=== PATIENT | male | born 1955 | race Caucasian/White ===

== ENCOUNTER → 2016-07-04 | Outpatient (CLI) | payer MEDICAID ==
[~2016-07-04] MED LIST: AUGMENTIN875 MG PO; ELIQUIS5 MG PO; LORTAB 5-325 M1 EACH PO; NO MEDICATIONS; PREDNISONE PO; TYL325 PO
--- NOTE | ~2016-07-04 | MR17 ---
[facility] A Service of [facility] & [facility] RADIOLOGY TEXT RESULTS PATIENT: DARNELL RUVALCABA LOCATION: [facility] : 55 UNIT #: [id number] AGE: [address]: Mindy Craig MD SEX: M ORDER DR: [id number] [facility] [address] [place], [place] [address] [id number] O MR#: [id number] Acc #: [id number] NAME: DARNELL RUVALACBA : 1955 SEX: M STUDY DATE/TIME: 07/04/2016 12:45 UNIT: [facility] ROOM: STUDY DESCRIPTION: MR Brain WWo Contrast Attending Physician: Mindy Craig M.D., Ph.D. Referring Physician: Mindy Craig M.D., Ph.D. Ordering Physician: Mindy Craig M.D., Ph.D. Primary Care Physician: Primary Care Physician No MRI CENTER REPORT This report is preliminary unless electronic signature is present. EXAM MRI of the brain with and without HISTORY Secondary malignant neoplasm of the brain. Lung cancer primary diagnosed 2-1/2 years ago. Known brain tumor for follow-up, treated with radiation February 2016 and June 2016. FINDINGS MRI of the brain was performed prior to and following intravenous administration of 15 mL of MultiHance. Comparison is made to the study from 03/22/2016. Redemonstrated is rim-like enhancing mass lesion centered in the left frontal lobe deeply and extending to the ependymal surface of the left lateral ventricle. On comparison to the prior study, the rim-like enhancing mass lesion itself is probably slightly smaller measuring about 1.7 x 1.7 x 1.6 cm in diameter as compared to 1.8 x 1.9 x 1.7 cm in dimension. There is more nodularity to the enhancing rind which is thicker than it was previously and there is probably subtle increased extension to the ependymal surface of the left lateral ventricle. Additionally, there is increased associated mass effect. This includes increase in the size of surrounding vasogenic edema in the left frontal lobe. Prior measurement axial plane about 3.6 x 3.5 cm with current measurement axial plane same level about 4.8 x 4.7 cm dimension. There is also some increased mass effect on the left lateral ventricle and development of about 3.0 mm of right to left shift of the midline at the level of the septum pellucidum. There are again likely blood products and/or mineral deposition at the margins of the cavity similar to previous. No new enhancing lesions are seen. No downward herniation. No change in the mild prominence of the extraaxial fluid overlying the anterior aspect of the brain. The major intracranial flow voids are STS. [facility] A Service of [facility] RADIOLOGY TEXT RESULTS PATIENT: DARNELL RUVALCABA LOCATION: [facility] : 55 UNIT #: [id number] AGE: [address]: Mindy Craig MD SEX: M ORDER DR: maintained. The mastoid air cells and paranasal sinuses are clear. IMPRESSION There are mixed changes with respect to the treated left frontal mass lesion. The rim enhancing component measures slightly smaller but the enhancement itself is thicker and more nodular and the surrounding vasogenic edema is worsening. There is also increasing mass effect and the development of about 3.0 mm of left to right shift of the midline at the level of the septum pellucidum. Findings could be due to interval growth of tumor or could be a manifestation of radiation necrosis. Clinical correlation and short term follow-up imaging suggested. No new intracranial masses appreciated. STAT * RESULT Dictated by... Amina Pedro M.D. THIS IS AN ELECTRONICALLY VERIFIED REPORT Amina Pedro M.D. at 07/05/2016 5:39 PM MARIA C/kathi TD: 07/05/2016 13:04 JOB #: [id number] MRI CENTER REPORT Page 1 of 1 COPY
[2016-07-04 15:51] LABS: POC - GFR >60.0 mL/min (>60)
== END | disposition home or self-care (01) ==
LOC: CMRI 11:54
PROVIDERS: Internal Medicine Hematology & Oncology
DX: C79.31 Secondary malignant neoplasm of brain (principal); C34.90 Malignant neoplasm of unspecified part of unspecified bronchus or lung; I26.09 Other pulmonary embolism with acute cor pulmonale; G93.89 Other specified disorders of brain
CPT/HCPCS: 70553; 82565; A9577

== ENCOUNTER → 2016-08-30 | Outpatient (CLI) | payer MEDICAID ==
--- NOTE | ~2016-08-30 | MR17 ---
[facility] A Service of [facility] & [facility] RADIOLOGY TEXT RESULTS PATIENT: DARNELL RUVALCABA LOCATION: [facility] : 55 UNIT #: [id number] AGE: [address]: Mindy Craig MD SEX: M ORDER DR: [id number] [facility] [address] [place], [place] [address] [id number] O MR#: [id number] Acc #: [id number] NAME: DARNELL RUVALCABA : 1955 SEX: M STUDY DATE/TIME: 08/30/2016 19:46 UNIT: [facility] ROOM: STUDY DESCRIPTION: MR Brain WWo Contrast Attending Physician: Mindy Craig M.D., Ph.D. Referring Physician: Luis Goncalves M.D. Ordering Physician: Mindy Craig M.D., Ph.D. Primary Care Physician: Primary Care Physician No MRI CENTER REPORT This report is preliminary unless electronic signature is present. 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 Patient had radiation therapy to the brain. Finding not indicated. Patient had brain surgery approximately February 2015 per his recollection. Apparently the patient has had headaches for a month. Followup intracranial tumor. FINDINGS MRI of the brain was performed prior to and following intravenous administration of 15 mL of MultiHance. There is a prior study from 07/04/2016. Redemonstrated is a mass lesion in the left frontal lobe centered in the deep to periventricular white matter and extending ependyma of left lateral ventricle. This mass has some blood products or mineral deposition associated with it. It has irregular somewhat nodular rim like enhancement with an area of central nonenhancement/necrosis. Current measurements are about 2.2 x 1.4 x 2.2 cm as compared to 2.2 x 1.2 x 1.8 cm. It measures slightly larger and there is clearly increase in surrounding vasogenic edema. There is also increase in the amount of enhancement associated with the mass. In a patient with known treated malignancy including recent radiation therapy this could either be due to tumor growth or radiation necrosis. There is mild increase in local mass effect with the increased vasogenic edema. There is some mild mass effect on the left lateral ventricle and again there is minimal [id number] shift of the midline. There is no extraaxial fluid collection. The major intracranial flow voids are maintained. The paranasal sinuses contain mild mucosal disease. The mastoid air cells are clear. Aside from the vasogenic edema there is minor white matter disease likely due to small vessel disease and otherwise within range of expected for age group. No new area of pathologic intracranial enhancement is seen. [facility] A Service of [facility] RADIOLOGY TEXT RESULTS PATIENT: DARNELL RUVALCABA LOCATION: [facility] : 55 UNIT #: [id number] AGE: [address]: Mindy Craig MD SEX: M ORDER DR: IMPRESSION Interval worsening in the appearance of the brain with interval increase in size of and enhancement of known left frontal parenchymal mass lesion and associated vasogenic edema. Mild increase in the localized mass effect noted. There is still only minimal shift of the midline [id number]. Findings could be due to progression of known tumor or possibly due to radiation necrosis. Please correlate further clinically. STAT * RESULT Dictated by... Amina Pedro M.D. THIS IS AN ELECTRONICALLY VERIFIED REPORT Amina Pedro M.D. at 08/31/2016 4:29 PM Tamie TD: 08/31/2016 11:37 JOB #: [id number] MRI CENTER REPORT Page 1 of 1 COPY
--- NOTE | ~2016-08-30 | CR181 ---
[facility] A Service of [facility] & [facility] RADIOLOGY TEXT RESULTS PATIENT: DARNELL RUVALCABA LOCATION: [facility] : 55 UNIT #: [id number] AGE: [address]: Mindy Craig MD SEX: M ORDER DR: [id number] [facility] [address] [place], [place] [address] [id number] O MR#: [id number] Acc #: [id number] NAME: DARNELL RUVALCABA : 1955 SEX: M STUDY DATE/TIME: 08/30/2016 18:25 UNIT: [facility] ROOM: STUDY DESCRIPTION: CR Lumbar Spine 2 or 3 Views Attending Physician: Mindy Craig M.D., Ph.D. Referring Physician: Luis Goncalves M.D. Ordering Physician: Mindy Craig M.D., Ph.D. Primary Care Physician: No Primary Care Physician MEDICAL IMAGING REPORT This report is preliminary unless electronic signature is present EXAM Lumbar spine series dated 08/30/2016. COMPARISON CT abdomen and pelvis dated 12/22/2015. No prior lumbar spine studies. HISTORY Low back pain with stiffness in the center of the back. Right hip pain also. It is been going on and off for a year. FINDINGS Three views of the lumbar spine were obtained. There is mild leftward curvature of the lumbar spine with the apex at L1-2. Elkins angle measured from the superior endplate of T12 to the superior endplate of L3 is 10 degrees. It could be due to positioning or mild scoliosis. Endplate osteophytes are at multiple levels of the lumbar spine, most prominent at L2 and L1. No acute displaced fracture or subluxation. It is probably degenerative disc disease at multiple levels and facet changes at L4-5 and probably L5-S1. Postoperative changes are in the right upper abdomen suggestive of cholecystectomy. Dictated by... Rachel Callejas M.D. THIS IS AN ELECTRONICALLY VERIFIED REPORT Rachel Callejas M.D. at 09/05/2016 7:25 PM CPR/ea TD: 08/31/2016 13:28 [facility] A Service of [facility] & [facility] RADIOLOGY TEXT RESULTS PATIENT: DARNELL RUVALCABA LOCATION: [facility] : 55 UNIT #: [id number] AGE: [address]: Mindy Craig MD SEX: M ORDER DR: JOB #: [id number] MEDICAL IMAGING REPORT Page 1 of 1 COPY
[2016-08-30 19:51] LABS: POC - CREATININE 0.83 mg/dL (0.64-1.27); POC - GFR >60.0 mL/min (>60)
== END | disposition home or self-care (01) ==
LOC: CMRI 14:00 → CRAD 18:09 → CMRI 20:00
PROVIDERS: Internal Medicine Hematology & Oncology
DX: C79.31 Secondary malignant neoplasm of brain (principal); I26.09 Other pulmonary embolism with acute cor pulmonale; M54.5 Low back pain; C80.1 Malignant (primary) neoplasm, unspecified; G93.89 Other specified disorders of brain; G93.6 Cerebral edema
CPT/HCPCS: 70553; 72100; 82565; A9577